=== PATIENT | female | born 1945 ===

== ENCOUNTER 2021-05-29 21:19 | Inpatient (IN) | payer BC, OTHER ==
[~2021-05-29] VITALS: Ht 152.4 cm; Wt 30.7 kg
[2021-05-29] MEDS ORDERED: ASPirin 81 mg TAB PO ONE (22:00)
[2021-05-29] MEDS ORDERED: LABETALOL HCL 5 MG/ML 4ML SYRINGE IV ONE (22:00)
[2021-05-29 22:22] LABS: Basophils # (auto) 0.1 10 ^3/uL (0-0.2); Basophils % (auto) 1.5 % (0.0-2.0); Eosinophils # (auto) 0.2 10 ^3/uL (0-0.8); Eosinophils % (auto) 2.8 % (0.0-7.0); Hematocrit 29.7 % (36.0-46.0); Hemoglobin 9.7 g/dL (12.2-16.2); Lymphocytes # (auto) 0.7 10 ^3/uL (0.4-5.4); Lymphocytes % (auto) 10.9 % (10.0-50.0); Mean Corpuscular Hemoglobin 30.5 pg (28.0-32.0); Mean Corpuscular Hgb Conc. 32.6 g/dL (32.0-36.0); Mean Corpuscular Volume 93.3 fL (80.0-100.0); Monocytes # (auto) 0.5 10 ^3/uL (0-1.3); Monocytes % (auto) 8.4 % (0.0-12.0); Neutrophils # (auto) 4.7 10 ^3/uL (1.6-8.6); Neutrophils % (auto) 76.4 % (37.0-80.0); Red Blood Cells 3.18 10^6/uL (4.0-5.20); Red Cell Distribution Width 15.7 % (11.8-14.3); White Blood Cell 6.1 10^3/uL (4.4-10.8)
[2021-05-29 22:33] LABS: Urine Bacteria FEW /hpf (None Seen); Urine Blood Negative /uL (Negative); Urine Hyaline Cast FEW /lpf (0 - 2); Urine Mucus FEW (None Seen); Urine Specific Gravity 1.021 (1.001-1.035); Urine WBC 75 /hpf (0 - 5); Urine WBC Clumps PRESENT /hpf (None Seen)
[2021-05-29 22:40] LABS: Albumin 3.4 g/dL (3.4-5.0); Calcium 8.4 mg/dL (8.5-10.1)
[2021-05-29 22:49] LABS: Bilirubin, Total 0.3 mg/dL (0.2-1.0); Total Protein 6.7 g/dL (6.4-8.2)
[2021-05-29] MEDS ORDERED: ONDANSETRON HCL 4 MG/2 ML VIAL IV ONE (23:30)
[2021-05-29] MEDS ORDERED: MORPHINE SULFATE INJECTION 2 MG/ML SYRG IV ONE (23:30)
[2021-05-30] VITALS (23 sets, daily range): BP systolic 125–154; BP diastolic 49–111
[2021-05-30 00:07] LABS: INR 1.03 (0.9-1.15); Partial Thromboplastin Time 27.6 sec (23.6-33.0)
[2021-05-30] MEDS ORDERED: LABETALOL HCL 5 MG/ML 4ML SYRINGE IV ONE (01:15)
[2021-05-30] MEDS ORDERED: cefTRIAXone 1GM/50ML D5W 50 ML IV ONE (02:00)
[2021-05-30] MEDS ORDERED: LABETALOL HCL 200 MG TAB PO ONE (02:15)
[2021-05-30] MEDS ORDERED: ATORVASTATIN 20 MG TAB PO ONE (04:00)
[2021-05-30] MEDS ORDERED: DEXTROSE (50%) 50ML SYRG IV PRN (04:00)
[2021-05-30] MEDS ORDERED: MORPHINE SULFATE INJECTION 2 MG/ML SYRG IV PRN (04:00)
[2021-05-30] MEDS ORDERED: ALBUTEROL SULF 2.5 MG/0.5ML(0.5%) NEB SOLN NEB PRN (04:00)
[2021-05-30] MEDS ORDERED: CLOPIDOGREL 300 MG TAB PO ONE (04:00)
[2021-05-30] MEDS ORDERED: methylPREDNISolone SOD SUCC 125 MG/2 ML VL IV ONE (04:00)
[2021-05-30] MEDS ORDERED: IPRATROPIUM BROM 0.5 MG/2.5ML INH SOL NEB PRN (04:00)
[2021-05-30] MEDS ORDERED: MORPHINE SULFATE 4 MG/ML SYR/VIAL IV PRN (04:00)
[2021-05-30] MEDS: GABAPENTIN 300 MG CAP PO SCH (05:05)
[2021-05-30] MEDS: ALBUTEROL SULF 2.5 MG/0.5ML(0.5%) NEB SOLN NEB SCH ×5 (06:10→23:47)
[2021-05-30] MEDS: IPRATROPIUM BROM 0.5 MG/2.5ML INH SOL NEB SCH ×5 (06:10→23:47)
[2021-05-30] MEDS: NITROGLYCERIN 50MG/250ML 250 ML IV SCH (06:19)
[2021-05-30] MEDS: InsuLIN REG 1unit/0.01ml Soln (100units/ml) SC SCH ×4 (07:00→21:39)
[2021-05-30] MEDS: ACCU-CHEK COMFORT CURVE STRIP VI SCH ×4 (07:27→21:40)
[2021-05-30 08:07] LABS: Basophils # (auto) 0.1 10 ^3/uL (0-0.2); Basophils % (auto) 1.1 % (0.0-2.0); Eosinophils # (auto) 0.1 10 ^3/uL (0-0.8); Eosinophils % (auto) 1.2 % (0.0-7.0); Hemoglobin 9.5 g/dL (12.2-16.2); Lymphocytes # (auto) 0.4 10 ^3/uL (0.4-5.4); Lymphocytes % (auto) 7.6 % (10.0-50.0); Mean Corpuscular Hemoglobin 31.8 pg (28.0-32.0); Mean Corpuscular Hgb Conc. 33.9 g/dL (32.0-36.0); Mean Corpuscular Volume 93.7 fL (80.0-100.0); Monocytes # (auto) 0.1 10 ^3/uL (0-1.3); Monocytes % (auto) 3.1 % (0.0-12.0); Neutrophils # (auto) 4.1 10 ^3/uL (1.6-8.6); Red Blood Cells 2.98 10^6/uL (4.0-5.20); White Blood Cell 4.8 10^3/uL (4.4-10.8)
[2021-05-30 08:09] LABS: Amphetamine Screen, Urine NEGATIVE (NEGATIVE); Barbiturate Scree,Urine NEGATIVE (NEGATIVE); Benzodiazephine Screen, Urine NEGATIVE (NEGATIVE); Cannabinoid Screen, Urine NEGATIVE (NEGATIVE); Cocaine Screen, Urine NEGATIVE (NEGATIVE); Opiate Scree,Urine NEGATIVE (NEGATIVE); Phencyclidine Screen, Urine NEGATIVE (NEGATIVE)
[2021-05-30 08:18] LABS: Albumin 3.1 g/dL (3.4-5.0); Magnesium 2.5 mg/dL (1.6-2.6)
[2021-05-30 08:25] LABS: BUN/Creatinine Ratio 18.3; Bilirubin, Total 0.3 mg/dL (0.2-1.0); Calcium 8.5 mg/dL (8.5-10.1); Total Protein 6.4 g/dL (6.4-8.2)
[2021-05-30 08:27] LABS: INR 1.04 (0.9-1.15); Partial Thromboplastin Time 41.6 sec (23.6-33.0)
[2021-05-30 08:34] LABS: Potassium 5.7 mmol/L (3.5-5.1)
[2021-05-30] MEDS: FUROSEMIDE 40 MG/4 ML VIAL IV SCH ×2 (10:07→17:35)
[2021-05-30] MEDS: CARVEDILOL 3.125 MG TAB PO SCH ×2 (10:08→21:03)
[2021-05-30] MEDS: ASPirin 81 mg TAB PO SCH (10:08)
[2021-05-30] MEDS: PANTOPRAZOLE 40 MG TAB PO SCH (10:09)
[2021-05-30] MEDS: SOD CHL 0.45% 1,000 ML IV SCH ×5 (13:55→17:52)
[2021-05-30] MEDS: methylPREDNISolone SOD SUCC 40 MG/ML VL IV SCH ×3 (13:55→23:17)
[2021-05-30] MEDS: hydrALAZINE HCL 25 MG TAB PO SCH ×2 (13:56→21:03)
[2021-05-30 16:42] LABS: INR 0.99 (0.9-1.15); Partial Thromboplastin Time 30.6 sec (23.6-33.0)
[2021-05-30] MEDS: SODIUM ZIRCONIUM CYCL 10 GM PAK PO SCH ×2 (17:31→21:04)
[2021-05-30] MEDS ORDERED: HEPARIN DRIP/D5W 100UNITS/ML 250 ML IV SCH ×2 (18:15)
[2021-05-30] MEDS ORDERED: HEPARIN SODIUM (PORCINE) 5000 UNITS/ML 1ML VIAL IV ONE ×2 (18:15)
[2021-05-30] MEDS: cloNIDine HCL 0.1 MG TAB PO SCH (21:04)
[2021-05-30] MEDS: ATORVASTATIN 20 MG TAB PO SCH (21:04)
[2021-05-31] VITALS (22 sets, daily range): BP systolic 115–170; BP diastolic 49–81
[2021-05-31 01:53] LABS: INR 1.03 (0.9-1.15)
[2021-05-31] MEDS: SOD CHL 0.45% 1,000 ML IV SCH (01:58)
[2021-05-31 02:06] LABS: Partial Thromboplastin Time 102.9 sec (23.6-33.0)
[2021-05-31] MEDS: NITROGLYCERIN 50MG/250ML 250 ML IV SCH (04:00)
[2021-05-31] MEDS: methylPREDNISolone SOD SUCC 40 MG/ML VL IV SCH (05:38)
[2021-05-31 06:04] LABS: Basophils # (auto) 0 10 ^3/uL (0-0.2); Basophils % (auto) 0.4 % (0.0-2.0); Eosinophils # (auto) 0 10 ^3/uL (0-0.8); Hematocrit 26.2 % (36.0-46.0); Hemoglobin 8.7 g/dL (12.2-16.2); Lymphocytes # (auto) 0.3 10 ^3/uL (0.4-5.4); Lymphocytes % (auto) 3.3 % (10.0-50.0); Mean Corpuscular Hemoglobin 31.1 pg (28.0-32.0); Mean Corpuscular Hgb Conc. 33.3 g/dL (32.0-36.0); Mean Corpuscular Volume 93.4 fL (80.0-100.0); Monocytes # (auto) 0.2 10 ^3/uL (0-1.3); Monocytes % (auto) 2.7 % (0.0-12.0); Neutrophils # (auto) 7.8 10 ^3/uL (1.6-8.6); Neutrophils % (auto) 93.6 % (37.0-80.0); Red Cell Distribution Width 15.2 % (11.8-14.3); White Blood Cell 8.4 10^3/uL (4.4-10.8)
[2021-05-31] MEDS: IPRATROPIUM BROM 0.5 MG/2.5ML INH SOL NEB SCH ×3 (06:28→18:32)
[2021-05-31] MEDS: ALBUTEROL SULF 2.5 MG/0.5ML(0.5%) NEB SOLN NEB SCH ×3 (06:28→18:32)
[2021-05-31] MEDS: ACCU-CHEK COMFORT CURVE STRIP VI SCH ×4 (06:35→21:29)
[2021-05-31] MEDS: FUROSEMIDE 40 MG/4 ML VIAL IV SCH ×2 (06:35→17:44)
[2021-05-31] MEDS: InsuLIN REG 1unit/0.01ml Soln (100units/ml) SC SCH ×4 (06:39→21:29)
[2021-05-31 06:54] LABS: Albumin 2.8 g/dL (3.4-5.0); BUN/Creatinine Ratio 17.2; Potassium 5.3 mmol/L (3.5-5.1)
[2021-05-31 06:57] LABS: Bilirubin, Total 0.2 mg/dL (0.2-1.0); Total Protein 6.2 g/dL (6.4-8.2)
[2021-05-31 06:59] LABS: INR 1.01 (0.9-1.15); Partial Thromboplastin Time 46.1 sec (23.6-33.0)
[2021-05-31 08:15] LABS: Uric Acid 9.3 mg/dL (2.6-6.0)
[2021-05-31] MEDS: SODIUM ZIRCONIUM CYCL 10 GM PAK PO SCH (08:57)
[2021-05-31] MEDS ORDERED: cefTRIAXone 1GM/50ML D5W 50 ML IV SCH (09:00)
[2021-05-31 09:21] LABS: Urine Bacteria FEW /hpf (None Seen); Urine Blood 1+ /uL (Negative); Urine Hyaline Cast FEW /lpf (0 - 2); Urine Specific Gravity 1.008 (1.001-1.035); Urine WBC 11 /hpf (0 - 5)
[2021-05-31 09:33] LABS: Protein, Urine 69.4 mg/dL (0.0-11.9)
[2021-05-31] MEDS: hydrALAZINE HCL 25 MG TAB PO SCH ×2 (10:43→21:28)
[2021-05-31] MEDS: METOPROLOL TARTRATE 25 MG TAB PO SCH ×2 (10:43→21:29)
[2021-05-31] MEDS: CLOPIDOGREL BISULFATE 75 MG TAB PO SCH (10:44)
[2021-05-31] MEDS: GABAPENTIN 300 MG CAP PO SCH (10:45)
[2021-05-31] MEDS: cloNIDine HCL 0.1 MG TAB PO SCH ×2 (10:45→21:29)
[2021-05-31] MEDS: PANTOPRAZOLE 40 MG TAB PO SCH (10:45)
[2021-05-31] MEDS: ASPirin 81 mg TAB PO SCH (10:45)
[2021-05-31] MEDS ORDERED: SODIUM CHLORIDE 0.9% 1,000 ML IV SCH (12:45)
[2021-05-31 12:58] LABS: INR 0.99 (0.9-1.15); Partial Thromboplastin Time 43.3 sec (23.6-33.0)
[2021-05-31] MEDS: HEPARIN DRIP/D5W 100UNITS/ML 250 ML IV SCH ×2 (13:49→19:57)
[2021-05-31] MEDS: ALBUMIN 25% 100 ML IV SCH ×2 (13:55→22:02)
[2021-05-31] MEDS: CALCIUM GLUC 1,000mg/50ml-NS 50 ML IV SCH ×3 (16:49→21:28)
[2021-05-31] MEDS ORDERED: ONDANSETRON HCL 4 MG/2 ML VIAL IV PRN (20:15)
[2021-05-31 20:17] LABS: INR 1.04 (0.9-1.15)
[2021-05-31 21:06] LABS: Partial Thromboplastin Time 80.6 sec (23.6-33.0)
[2021-05-31] MEDS: ATORVASTATIN 20 MG TAB PO SCH (21:28)
[2021-06-01] VITALS (11 sets, daily range): BP systolic 101–130; BP diastolic 42–70
[2021-06-01] MEDS: IPRATROPIUM BROM 0.5 MG/2.5ML INH SOL NEB SCH ×4 (00:06→18:20)
[2021-06-01] MEDS: ALBUTEROL SULF 2.5 MG/0.5ML(0.5%) NEB SOLN NEB SCH ×4 (00:06→18:20)
[2021-06-01] MEDS: NITROGLYCERIN 50MG/250ML 250 ML IV SCH (02:37)
[2021-06-01 03:04] LABS: Basophils # (auto) 0 10 ^3/uL (0-0.2); Basophils % (auto) 0.3 % (0.0-2.0); Eosinophils # (auto) 0 10 ^3/uL (0-0.8); Hematocrit 24.5 % (36.0-46.0); Hemoglobin 8.1 g/dL (12.2-16.2); Lymphocytes # (auto) 0.5 10 ^3/uL (0.4-5.4); Lymphocytes % (auto) 8.1 % (10.0-50.0); Mean Corpuscular Hemoglobin 31.1 pg (28.0-32.0); Mean Corpuscular Hgb Conc. 33.1 g/dL (32.0-36.0); Mean Corpuscular Volume 94.2 fL (80.0-100.0); Monocytes # (auto) 0.5 10 ^3/uL (0-1.3); Neutrophils % (auto) 82.6 % (37.0-80.0); Nucleated Red Blood Cells % 0.2 %; Red Blood Cells 2.61 10^6/uL (4.0-5.20); Red Cell Distribution Width 15.5 % (11.8-14.3); White Blood Cell 6.1 10^3/uL (4.4-10.8)
[2021-06-01 03:25] LABS: Albumin 3.6 g/dL (3.4-5.0); BUN/Creatinine Ratio 18.8; Calcium 8.3 mg/dL (8.5-10.1); Potassium 4.7 mmol/L (3.5-5.1)
[2021-06-01 03:27] LABS: Bilirubin, Total 0.2 mg/dL (0.2-1.0); Total Protein 5.9 g/dL (6.4-8.2)
[2021-06-01 03:36] LABS: INR 1.04 (0.9-1.15)
[2021-06-01 03:45] LABS: Partial Thromboplastin Time 89.9 sec (23.6-33.0)
[2021-06-01] MEDS: ALBUMIN 25% 100 ML IV SCH (04:45)
[2021-06-01] MEDS: FUROSEMIDE 40 MG/4 ML VIAL IV SCH ×2 (06:00→12:07)
[2021-06-01] MEDS: ACCU-CHEK COMFORT CURVE STRIP VI SCH ×4 (06:09→22:00)
[2021-06-01] MEDS: InsuLIN REG 1unit/0.01ml Soln (100units/ml) SC SCH ×4 (06:09→22:00)
[2021-06-01] MEDS ORDERED: CALCIUM CHL 100MG/ML 1,000 MG in D5W 5% 100 ML IV ONE (08:30)
[2021-06-01] MEDS ORDERED: SODIUM CHLORIDE 0.9% 1,000 ML IV SCH ×2 (08:30→14:45)
[2021-06-01] MEDS ORDERED: levoFLOXacin 500MG 100 ML IV ONE (09:00)
[2021-06-01] MEDS: PANTOPRAZOLE 40 MG TAB PO SCH (09:09)
[2021-06-01] MEDS: GABAPENTIN 300 MG CAP PO SCH (09:09)
[2021-06-01] MEDS: ASPirin 81 mg TAB PO SCH (09:10)
[2021-06-01] MEDS: CLOPIDOGREL BISULFATE 75 MG TAB PO SCH (09:10)
[2021-06-01] MEDS: METOPROLOL TARTRATE 25 MG TAB PO SCH ×2 (09:10→22:00)
[2021-06-01] MEDS: cloNIDine HCL 0.1 MG TAB PO SCH (09:10)
[2021-06-01] MEDS: hydrALAZINE HCL 25 MG TAB PO SCH ×2 (09:11→22:00)
[2021-06-01 10:47] LABS: INR 1.06 (0.9-1.15); Partial Thromboplastin Time 58.8 sec (23.6-33.0)
[2021-06-01] MEDS: CALCIUM ACETATE 667 MG CAP PO SCH ×2 (12:00→17:15)
[2021-06-01] MEDS ORDERED: SODIUM CHLORIDE 0.9% 1,000 ML IV ONE (12:15)
[2021-06-01] MEDS ORDERED: SODIUM CHLORIDE 0.9% 500 ML IV ONE (14:45)
[2021-06-01] MEDS ORDERED: LACTULOSE 20Gm/30ML SOLN PO ONE (15:30)
[2021-06-01 16:20] LABS: INR 1.08 (0.9-1.15); Partial Thromboplastin Time 42.1 sec (23.6-33.0)
[2021-06-01] MEDS ORDERED: FUROSEMIDE 100 MG/10ML VIAL IV ONE (18:15)
[2021-06-01] MEDS: SODIUM CHLORIDE 0.9% 1,000 ML IV SCH (18:33)
[2021-06-01] MEDS: ATORVASTATIN 20 MG TAB PO SCH (22:00)
[2021-06-02] MEDS: IPRATROPIUM BROM 0.5 MG/2.5ML INH SOL NEB SCH ×5 (00:19→23:54)
[2021-06-02] MEDS: ALBUTEROL SULF 2.5 MG/0.5ML(0.5%) NEB SOLN NEB SCH ×5 (00:19→23:54)
[2021-06-02 04:39] LABS: Urine Bacteria FEW /hpf (None Seen); Urine Blood 2+ /uL (Negative); Urine Hyaline Cast MOD /lpf (0 - 2); Urine WBC 8 /hpf (0 - 5)
[2021-06-02 05:00] VITALS: BP 122/51
[2021-06-02 06:00] LABS: Basophils # (auto) 0 10 ^3/uL (0-0.2); Basophils % (auto) 0.5 % (0.0-2.0); Eosinophils # (auto) 0 10 ^3/uL (0-0.8); Eosinophils % (auto) 0.2 % (0.0-7.0); Hematocrit 26.8 % (36.0-46.0); Hemoglobin 8.8 g/dL (12.2-16.2); Lymphocytes # (auto) 0.5 10 ^3/uL (0.4-5.4); Lymphocytes % (auto) 9.7 % (10.0-50.0); Mean Corpuscular Hemoglobin 31.1 pg (28.0-32.0); Mean Corpuscular Hgb Conc. 32.7 g/dL (32.0-36.0); Monocytes # (auto) 0.6 10 ^3/uL (0-1.3); Monocytes % (auto) 10.2 % (0.0-12.0); Neutrophils # (auto) 4.4 10 ^3/uL (1.6-8.6); Neutrophils % (auto) 79.4 % (37.0-80.0); Nucleated Red Blood Cells % 0.2 %; Red Blood Cells 2.82 10^6/uL (4.0-5.20); Red Cell Distribution Width 15.9 % (11.8-14.3); White Blood Cell 5.5 10^3/uL (4.4-10.8)
[2021-06-02 06:24] LABS: Albumin 3.4 g/dL (3.4-5.0); Calcium 8.1 mg/dL (8.5-10.1); Potassium 5.1 mmol/L (3.5-5.1)
[2021-06-02 06:44] LABS: BUN/Creatinine Ratio 19.5; Bilirubin, Total 0.3 mg/dL (0.2-1.0); Total Protein 5.7 g/dL (6.4-8.2)
[2021-06-02] MEDS: ACCU-CHEK COMFORT CURVE STRIP VI SCH ×4 (06:51→22:00)
[2021-06-02] MEDS: InsuLIN REG 1unit/0.01ml Soln (100units/ml) SC SCH ×4 (06:51→22:00)
[2021-06-02 08:00] VITALS: BP 129/41
[2021-06-02] MEDS: CALCIUM ACETATE 667 MG CAP PO SCH ×3 (08:00→18:00)
[2021-06-02] MEDS: SODIUM CHLORIDE 0.9% 1,000 ML IV SCH (08:33)
[2021-06-02] MEDS ORDERED: ENOXAPARIN SOD 30 MG/0.3 ML SYRINGE SC SCH (10:00)
[2021-06-02] MEDS: ASPirin 81 mg TAB PO SCH (10:05)
[2021-06-02] MEDS ORDERED: ASPI325T31 PO (10:05)
[2021-06-02] MEDS: hydrALAZINE HCL 25 MG TAB PO SCH ×2 (10:05→22:00)
[2021-06-02] MEDS ORDERED: CARV12.544 PO (10:05)
[2021-06-02] MEDS ORDERED: FAMO-12 PO (10:05)
[2021-06-02] MEDS: FUROSEMIDE 40 MG/4 ML VIAL IV SCH (10:05)
[2021-06-02] MEDS ORDERED: NIFE1TAB31 PO (10:05)
[2021-06-02] MEDS ORDERED: BUME1TAB3 PO (10:05)
[2021-06-02] MEDS: GABAPENTIN 300 MG CAP PO SCH (10:05)
[2021-06-02] MEDS ORDERED: SERT50TA19 PO (10:05)
[2021-06-02] MEDS ORDERED: ATOR40TA52 PO (10:05)
[2021-06-02] MEDS: PANTOPRAZOLE 40 MG TAB PO SCH (10:06)
[2021-06-02] MEDS: CLOPIDOGREL BISULFATE 75 MG TAB PO SCH (10:06)
[2021-06-02] MEDS: METOPROLOL TARTRATE 25 MG TAB PO SCH ×2 (10:06→22:00)
[2021-06-02] MEDS: ACETAMINOPHEN 325 MG TAB PO PRN (10:40)
[2021-06-02 12:00] VITALS: BP 114/46
[2021-06-02] MEDS: FUROSEMIDE 100 MG/10ML VIAL IV SCH ×2 (14:05→22:00)
[2021-06-02 16:00] VITALS: BP 112/48
[2021-06-02 19:03] LABS: BUN/Creatinine Ratio 17.4; Potassium 4.7 mmol/L (3.5-5.1)
[2021-06-02] MEDS: ATORVASTATIN 20 MG TAB PO SCH (22:00)
[2021-06-02] MEDS: HEPARIN SODIUM (PORCINE) 5000 UNITS/ML 1ML VIAL SC SCH (22:00)
[2021-06-02 22:01] VITALS: BP 117/41
[2021-06-03 05:39] LABS: Basophils # (auto) 0 10 ^3/uL (0-0.2); Basophils % (auto) 0.2 % (0.0-2.0); Eosinophils # (auto) 0 10 ^3/uL (0-0.8); Eosinophils % (auto) 0.3 % (0.0-7.0); Hematocrit 26.5 % (36.0-46.0); Hemoglobin 8.8 g/dL (12.2-16.2); Lymphocytes # (auto) 0.5 10 ^3/uL (0.4-5.4); Lymphocytes % (auto) 7.6 % (10.0-50.0); Mean Corpuscular Hemoglobin 31.5 pg (28.0-32.0); Mean Corpuscular Hgb Conc. 33.2 g/dL (32.0-36.0); Mean Corpuscular Volume 94.9 fL (80.0-100.0); Monocytes # (auto) 0.6 10 ^3/uL (0-1.3); Monocytes % (auto) 9.4 % (0.0-12.0); Neutrophils # (auto) 4.9 10 ^3/uL (1.6-8.6); Neutrophils % (auto) 82.5 % (37.0-80.0); Nucleated Red Blood Cells % 0.1 %; Red Blood Cells 2.79 10^6/uL (4.0-5.20); Red Cell Distribution Width 16.3 % (11.8-14.3)
[2021-06-03 05:48] VITALS: BP 128/53
[2021-06-03 05:50] LABS: Potassium 4.8 mmol/L (3.5-5.1)
[2021-06-03 05:53] LABS: Albumin 3.4 g/dL (3.4-5.0); BUN/Creatinine Ratio 17.5; Bilirubin, Total 0.3 mg/dL (0.2-1.0); Total Protein 5.8 g/dL (6.4-8.2)
[2021-06-03] MEDS: FUROSEMIDE 100 MG/10ML VIAL IV SCH ×3 (06:00→22:00)
[2021-06-03] MEDS: ACCU-CHEK COMFORT CURVE STRIP VI SCH ×4 (06:39→22:00)
[2021-06-03] MEDS: IPRATROPIUM BROM 0.5 MG/2.5ML INH SOL NEB SCH ×3 (06:41→19:21)
[2021-06-03] MEDS: ALBUTEROL SULF 2.5 MG/0.5ML(0.5%) NEB SOLN NEB SCH ×3 (06:41→19:21)
[2021-06-03] MEDS: InsuLIN REG 1unit/0.01ml Soln (100units/ml) SC SCH ×4 (06:42→22:00)
[2021-06-03] MEDS: CALCIUM ACETATE 667 MG CAP PO SCH ×3 (08:00→18:00)
[2021-06-03] MEDS: ASPirin 81 mg TAB PO SCH (08:44)
[2021-06-03] MEDS: METOPROLOL TARTRATE 25 MG TAB PO SCH ×2 (08:44→22:00)
[2021-06-03] MEDS: PANTOPRAZOLE 40 MG TAB PO SCH (08:44)
[2021-06-03] MEDS: CLOPIDOGREL BISULFATE 75 MG TAB PO SCH (08:44)
[2021-06-03] MEDS: GABAPENTIN 300 MG CAP PO SCH (08:44)
[2021-06-03] MEDS: HEPARIN SODIUM (PORCINE) 5000 UNITS/ML 1ML VIAL SC SCH ×2 (08:44→22:00)
[2021-06-03] MEDS: hydrALAZINE HCL 25 MG TAB PO SCH ×3 (08:44→18:00)
[2021-06-03 09:09] VITALS: BP 160/69
[2021-06-03] MEDS ORDERED: levoFLOXacin 250MG 50 ML IV SCH (10:00)
[2021-06-03] MEDS: ALBUMIN 25% 50 ML IV SCH ×2 (10:45→18:57)
[2021-06-03 12:40] VITALS: BP 141/68
[2021-06-03 14:39] LABS: Potassium 4.3 mmol/L (3.5-5.1)
[2021-06-03 14:43] LABS: BUN/Creatinine Ratio 16.6
[2021-06-03 14:44] LABS: Calcium 8.3 mg/dL (8.5-10.1)
[2021-06-03 16:32] VITALS: BP 167/70
[2021-06-03] MEDS: ATORVASTATIN 20 MG TAB PO SCH (22:00)
[2021-06-03 23:05] VITALS: BP 125/63
[2021-06-04] MEDS: IPRATROPIUM BROM 0.5 MG/2.5ML INH SOL NEB SCH ×4 (00:23→19:24)
[2021-06-04] MEDS: ALBUTEROL SULF 2.5 MG/0.5ML(0.5%) NEB SOLN NEB SCH ×4 (00:23→19:24)
[2021-06-04] MEDS: ALBUMIN 25% 50 ML IV SCH (02:45)
[2021-06-04 05:12] VITALS: BP 127/66
[2021-06-04] MEDS: FUROSEMIDE 100 MG/10ML VIAL IV SCH ×3 (06:00→22:08)
[2021-06-04] MEDS: hydrALAZINE HCL 25 MG TAB PO SCH ×4 (06:00→17:22)
[2021-06-04] MEDS: InsuLIN REG 1unit/0.01ml Soln (100units/ml) SC SCH ×4 (07:00→22:00)
[2021-06-04] MEDS: ACCU-CHEK COMFORT CURVE STRIP VI SCH ×4 (07:00→22:10)
[2021-06-04 07:04] LABS: BUN/Creatinine Ratio 17.2; Calcium 8.7 mg/dL (8.5-10.1); Potassium 4.3 mmol/L (3.5-5.1)
[2021-06-04] MEDS: CALCIUM ACETATE 667 MG CAP PO SCH ×3 (08:00→17:22)
[2021-06-04] MEDS: ASPirin 81 mg TAB PO SCH (08:00)
[2021-06-04 08:30] VITALS: BP 135/58
[2021-06-04] MEDS: METOPROLOL TARTRATE 25 MG TAB PO SCH ×2 (08:51→22:09)
[2021-06-04] MEDS: CLOPIDOGREL BISULFATE 75 MG TAB PO SCH (08:52)
[2021-06-04] MEDS: HEPARIN SODIUM (PORCINE) 5000 UNITS/ML 1ML VIAL SC SCH ×2 (08:52→22:10)
[2021-06-04] MEDS: GABAPENTIN 300 MG CAP PO SCH (08:52)
[2021-06-04] MEDS: PANTOPRAZOLE 40 MG TAB PO SCH (09:00)
[2021-06-04 13:00] VITALS: BP 134/68
[2021-06-04] MEDS ORDERED: HEPARIN 1,000 UNITS/ml 1ML VIAL ONE (14:13)
[2021-06-04] MEDS ORDERED: HEPARIN 1,000 UNITS/ml 1ML VIAL IV ONE (14:15)
[2021-06-04] MEDS ORDERED: LIDOCAINE 1% (LOCAL ANESTH.) PF 5ml SDV ONE (14:31)
[2021-06-04] MEDS ORDERED: ALBUMIN 25% 100 ML IV PRN (16:00)
[2021-06-04] MEDS ORDERED: SODIUM CHL 0.9% 1000 ML BAG XX ONE (16:00)
[2021-06-04 17:00] VITALS: BP 132/50
[2021-06-04 17:42] LABS: Basophils # (auto) 0 10 ^3/uL (0-0.2); Eosinophils # (auto) 0 10 ^3/uL (0-0.8); Lymphocytes # (auto) 0.3 10 ^3/uL (0.4-5.4); Neutrophils # (auto) 3.9 10 ^3/uL (1.6-8.6); Nucleated Red Blood Cells % 0.1 %; White Blood Cell 4.6 10^3/uL (4.4-10.8)
[2021-06-04 17:44] LABS: Basophils % (auto) 0.2 % (0.0-2.0); Eosinophils % (auto) 0.9 % (0.0-7.0); Hematocrit 23.7 % (36.0-46.0); Lymphocytes % (auto) 6.5 % (10.0-50.0); Mean Corpuscular Hemoglobin 31.1 pg (28.0-32.0); Mean Corpuscular Hgb Conc. 33.7 g/dL (32.0-36.0); Mean Corpuscular Volume 92.3 fL (80.0-100.0); Monocytes # (auto) 0.4 10 ^3/uL (0-1.3); Monocytes % (auto) 7.7 % (0.0-12.0); Neutrophils % (auto) 84.7 % (37.0-80.0); Red Blood Cells 2.57 10^6/uL (4.0-5.20); Red Cell Distribution Width 15.8 % (11.8-14.3)
[2021-06-04] MEDS ORDERED: EPOETIN ALFA-EPBX 10,000 UNIT/1ML VIAL SC ONE (21:00)
[2021-06-04 22:00] VITALS: BP 138/54
[2021-06-04] MEDS: ATORVASTATIN 20 MG TAB PO SCH (22:08)
[2021-06-05] VITALS (7 sets, daily range): BP systolic 127–144; BP diastolic 42–68
[2021-06-05] MEDS: ALBUTEROL SULF 2.5 MG/0.5ML(0.5%) NEB SOLN NEB SCH ×4 (00:36→19:39)
[2021-06-05] MEDS: IPRATROPIUM BROM 0.5 MG/2.5ML INH SOL NEB SCH ×4 (00:36→19:39)
[2021-06-05] MEDS: hydrALAZINE HCL 25 MG TAB PO SCH ×4 (00:49→17:27)
[2021-06-05] MEDS: FUROSEMIDE 100 MG/10ML VIAL IV SCH ×3 (05:45→22:01)
[2021-06-05] MEDS: InsuLIN REG 1unit/0.01ml Soln (100units/ml) SC SCH ×4 (05:46→21:56)
[2021-06-05] MEDS: ACCU-CHEK COMFORT CURVE STRIP VI SCH ×4 (05:46→21:57)
[2021-06-05] MEDS: CALCIUM ACETATE 667 MG CAP PO SCH ×3 (08:00→17:28)
[2021-06-05 08:30] LABS: Calcium 8.3 mg/dL (8.5-10.1); Potassium 3.6 mmol/L (3.5-5.1)
[2021-06-05 08:31] LABS: BUN/Creatinine Ratio 15.3
[2021-06-05 08:44] LABS: Basophils # (auto) 0 10 ^3/uL (0-0.2); Basophils % (auto) 0.3 % (0.0-2.0); Lymphocytes # (auto) 0.6 10 ^3/uL (0.4-5.4); Mean Corpuscular Volume 92.8 fL (80.0-100.0); Nucleated Red Blood Cells % 0.1 %
[2021-06-05 08:46] LABS: Eosinophils # (auto) 0.1 10 ^3/uL (0-0.8); Eosinophils % (auto) 1.2 % (0.0-7.0); Hematocrit 23.4 % (36.0-46.0); Lymphocytes % (auto) 10.7 % (10.0-50.0); Mean Corpuscular Hemoglobin 31.7 pg (28.0-32.0); Mean Corpuscular Hgb Conc. 34.2 g/dL (32.0-36.0); Monocytes # (auto) 0.7 10 ^3/uL (0-1.3); Monocytes % (auto) 13.2 % (0.0-12.0); Neutrophils % (auto) 74.6 % (37.0-80.0); Red Blood Cells 2.53 10^6/uL (4.0-5.20); Red Cell Distribution Width 15.6 % (11.8-14.3); White Blood Cell 5.4 10^3/uL (4.4-10.8)
[2021-06-05] MEDS: ASPirin 81 mg TAB PO SCH (09:32)
[2021-06-05] MEDS: METOPROLOL TARTRATE 25 MG TAB PO SCH ×2 (09:32→22:00)
[2021-06-05] MEDS: PANTOPRAZOLE 40 MG TAB PO SCH (09:33)
[2021-06-05] MEDS: CLOPIDOGREL BISULFATE 75 MG TAB PO SCH (09:33)
[2021-06-05] MEDS: GABAPENTIN 300 MG CAP PO SCH (09:33)
[2021-06-05] MEDS: HEPARIN SODIUM (PORCINE) 5000 UNITS/ML 1ML VIAL SC SCH ×2 (09:43→21:55)
[2021-06-05] MEDS: SODIUM FERR GLUC 62.5MG/5ML 125 MG in SODIUM CHL 0.9% 100 ML IV SCH (12:00)
[2021-06-05 13:31] LABS: Hepatitis A Ab IgM Negative
[2021-06-05 14:35] LABS: Hepatitis B Core IgM Negative
[2021-06-05 14:45] LABS: Hepatitis C Antibody Negative (Negative)
[2021-06-05] MEDS: ATORVASTATIN 20 MG TAB PO SCH (21:54)
[2021-06-06] MEDS: IPRATROPIUM BROM 0.5 MG/2.5ML INH SOL NEB SCH ×4 (00:42→18:22)
[2021-06-06] MEDS: ALBUTEROL SULF 2.5 MG/0.5ML(0.5%) NEB SOLN NEB SCH ×4 (00:42→18:22)
[2021-06-06] MEDS: hydrALAZINE HCL 25 MG TAB PO SCH ×5 (00:57→23:50)
[2021-06-06 05:00] VITALS: BP 152/71
[2021-06-06] MEDS: FUROSEMIDE 100 MG/10ML VIAL IV SCH ×3 (05:48→22:45)
[2021-06-06] MEDS: ACCU-CHEK COMFORT CURVE STRIP VI SCH ×4 (06:25→22:56)
[2021-06-06] MEDS: InsuLIN REG 1unit/0.01ml Soln (100units/ml) SC SCH ×4 (06:29→22:50)
[2021-06-06 06:44] LABS: Hemoglobin 8.2 g/dL (12.2-16.2)
[2021-06-06 06:49] LABS: Hematocrit 23.7 % (36.0-46.0)
[2021-06-06 06:56] LABS: Calcium 8.5 mg/dL (8.5-10.1); Potassium 3.5 mmol/L (3.5-5.1)
[2021-06-06 06:57] LABS: BUN/Creatinine Ratio 14.8
[2021-06-06] MEDS ORDERED: SODIUM CHL 0.9% 1000 ML BAG XX ONE (07:00)
[2021-06-06 08:00] VITALS: BP 142/46
[2021-06-06 08:34] VITALS: BP 142/46
[2021-06-06] MEDS: CLOPIDOGREL BISULFATE 75 MG TAB PO SCH (09:35)
[2021-06-06] MEDS: GABAPENTIN 300 MG CAP PO SCH (09:35)
[2021-06-06] MEDS: PANTOPRAZOLE 40 MG TAB PO SCH (09:35)
[2021-06-06] MEDS: CALCIUM ACETATE 667 MG CAP PO SCH ×3 (09:35→18:52)
[2021-06-06] MEDS: ASPirin 81 mg TAB PO SCH (09:36)
[2021-06-06] MEDS: METOPROLOL TARTRATE 25 MG TAB PO SCH ×2 (09:37→22:47)
[2021-06-06] MEDS: HEPARIN SODIUM (PORCINE) 5000 UNITS/ML 1ML VIAL SC SCH ×2 (09:44→22:47)
[2021-06-06] MEDS: SODIUM FERR GLUC 62.5MG/5ML 125 MG in SODIUM CHL 0.9% 100 ML IV SCH (12:46)
[2021-06-06 13:00] VITALS: BP 155/60
[2021-06-06 17:00] VITALS: BP 153/61
[2021-06-06] MEDS: Nepro With Carbsteady ButterPecan 8oz Carton PO SCH (18:00)
[2021-06-06] MEDS: ACETAMINOPHEN 325 MG TAB PO PRN (18:55)
[2021-06-06] MEDS ORDERED: EPOETIN ALFA-EPBX 10,000 UNIT/1ML VIAL SC ONE (21:00)
[2021-06-06 22:00] VITALS: BP 148/59
[2021-06-06] MEDS: ATORVASTATIN 20 MG TAB PO SCH (22:46)
[2021-06-07] MEDS: IPRATROPIUM BROM 0.5 MG/2.5ML INH SOL NEB SCH ×4 (00:11→18:59)
[2021-06-07] MEDS: ALBUTEROL SULF 2.5 MG/0.5ML(0.5%) NEB SOLN NEB SCH ×4 (00:11→18:59)
[2021-06-07 05:00] VITALS: BP 156/67
[2021-06-07] MEDS: FUROSEMIDE 100 MG/10ML VIAL IV SCH ×3 (05:13→21:40)
[2021-06-07] MEDS: hydrALAZINE HCL 25 MG TAB PO SCH ×3 (05:14→18:14)
[2021-06-07] MEDS: ACCU-CHEK COMFORT CURVE STRIP VI SCH ×4 (06:40→21:45)
[2021-06-07] MEDS: InsuLIN REG 1unit/0.01ml Soln (100units/ml) SC SCH ×4 (06:41→21:44)
[2021-06-07] MEDS: CALCIUM ACETATE 667 MG CAP PO SCH ×3 (08:32→18:14)
[2021-06-07] MEDS: Nepro With Carbsteady ButterPecan 8oz Carton PO SCH ×2 (08:33→19:36)
[2021-06-07 09:00] VITALS: BP 146/63
[2021-06-07] MEDS: ASPirin 81 mg TAB PO SCH (09:52)
[2021-06-07] MEDS: CLOPIDOGREL BISULFATE 75 MG TAB PO SCH (09:53)
[2021-06-07] MEDS: METOPROLOL TARTRATE 25 MG TAB PO SCH ×2 (09:53→21:41)
[2021-06-07] MEDS: GABAPENTIN 300 MG CAP PO SCH (09:54)
[2021-06-07] MEDS: PANTOPRAZOLE 40 MG TAB PO SCH (09:54)
[2021-06-07] MEDS: HEPARIN SODIUM (PORCINE) 5000 UNITS/ML 1ML VIAL SC SCH (09:55)
[2021-06-07 12:43] VITALS: BP 135/52
[2021-06-07] MEDS: SODIUM FERR GLUC 62.5MG/5ML 125 MG in SODIUM CHL 0.9% 100 ML IV SCH (12:48)
[2021-06-07] MEDS: HYDROcodone-ACET 5/325MG TAB PO PRN (13:57)
[2021-06-07 16:44] LABS: Red Blood Cells 2.57 10^6/uL (4.0-5.20)
[2021-06-07 16:47] LABS: Hematocrit 23.7 % (36.0-46.0); Mean Corpuscular Hgb Conc. 33.6 g/dL (32.0-36.0); Mean Corpuscular Volume 92.2 fL (80.0-100.0); Red Cell Distribution Width 15.9 % (11.8-14.3); White Blood Cell 6.3 10^3/uL (4.4-10.8)
[2021-06-07 16:58] LABS: Band Neutrophils % (manual) 0; Blast Cells 0; Metamyelocytes % 0; Myelocytes % 0; Promyelocytes % 0
[2021-06-07 17:00] VITALS: BP 132/54
[2021-06-07 17:05] LABS: Calcium 8.5 mg/dL (8.5-10.1); Potassium 3.6 mmol/L (3.5-5.1)
[2021-06-07 17:08] LABS: BUN/Creatinine Ratio 13.4
[2021-06-07] MEDS ORDERED: EPOETIN ALFA-EPBX 10,000 UNIT/1ML VIAL SC ONE (17:15)
[2021-06-07] MEDS ORDERED: ALBUMIN 25% 100 ML IV PRN (17:30)
[2021-06-07 17:45] LABS: Basophils % (manual) 1 (0.0-2.0); Eosinophils % (manual) 3 (0-7); Lymphocytes % (manual) 20 (10.0-50.0); Monocytes % (manual) 15 (0-12); Reactive Lymphocytes 1
[2021-06-07 20:00] VITALS: BP 130/54
[2021-06-07] MEDS: ATORVASTATIN 20 MG TAB PO SCH (21:41)
[2021-06-07 22:00] VITALS: BP 142/58
[2021-06-08] MEDS: ALBUTEROL SULF 2.5 MG/0.5ML(0.5%) NEB SOLN NEB SCH ×4 (00:24→19:20)
[2021-06-08] MEDS: IPRATROPIUM BROM 0.5 MG/2.5ML INH SOL NEB SCH ×4 (00:24→19:20)
[2021-06-08] MEDS: ACETAMINOPHEN 325 MG TAB PO PRN (03:00)
[2021-06-08] MEDS: FUROSEMIDE 100 MG/10ML VIAL IV SCH (05:40)
[2021-06-08] MEDS: InsuLIN REG 1unit/0.01ml Soln (100units/ml) SC SCH ×4 (05:41→22:00)
[2021-06-08] MEDS: hydrALAZINE HCL 25 MG TAB PO SCH ×4 (05:41→18:08)
[2021-06-08] MEDS: HEPARIN SODIUM (PORCINE) 5000 UNITS/ML 1ML VIAL SC SCH ×3 (05:44→22:13)
[2021-06-08] MEDS: ACCU-CHEK COMFORT CURVE STRIP VI SCH ×4 (05:57→21:59)
[2021-06-08] MEDS: HYDROcodone-ACET 5/325MG TAB PO PRN ×2 (05:58→23:23)
[2021-06-08 06:53] LABS: Basophils # (auto) 0 10 ^3/uL (0-0.2); Basophils % (auto) 0.7 % (0.0-2.0); Eosinophils # (auto) 0.2 10 ^3/uL (0-0.8); Eosinophils % (auto) 2.5 % (0.0-7.0); Hematocrit 25.5 % (36.0-46.0); Hemoglobin 8.5 g/dL (12.2-16.2); Lymphocytes # (auto) 1.3 10 ^3/uL (0.4-5.4); Lymphocytes % (auto) 17.9 % (10.0-50.0); Mean Corpuscular Hgb Conc. 33.5 g/dL (32.0-36.0); Mean Corpuscular Volume 92.6 fL (80.0-100.0); Monocytes # (auto) 1.1 10 ^3/uL (0-1.3); Monocytes % (auto) 15.2 % (0.0-12.0); Neutrophils # (auto) 4.5 10 ^3/uL (1.6-8.6); Neutrophils % (auto) 63.7 % (37.0-80.0); Nucleated Red Blood Cells % 0.2 %; Red Blood Cells 2.75 10^6/uL (4.0-5.20)
[2021-06-08 07:13] LABS: Calcium 9.2 mg/dL (8.5-10.1); Potassium 3.4 mmol/L (3.5-5.1)
[2021-06-08 07:15] LABS: BUN/Creatinine Ratio 14.1
[2021-06-08] MEDS: CALCIUM ACETATE 667 MG CAP PO SCH ×3 (07:51→18:07)
[2021-06-08] MEDS: Nepro With Carbsteady ButterPecan 8oz Carton PO SCH ×2 (07:52→18:09)
[2021-06-08 09:15] VITALS: BP 146/80
[2021-06-08] MEDS: GABAPENTIN 300 MG CAP PO SCH (09:58)
[2021-06-08] MEDS: ASPirin 81 mg TAB PO SCH (09:58)
[2021-06-08] MEDS: PANTOPRAZOLE 40 MG TAB PO SCH (09:58)
[2021-06-08] MEDS: CLOPIDOGREL BISULFATE 75 MG TAB PO SCH (09:58)
[2021-06-08] MEDS: METOPROLOL TARTRATE 25 MG TAB PO SCH ×2 (10:00→22:00)
[2021-06-08] MEDS ORDERED: HYDR25TA87 PO (11:07)
[2021-06-08] MEDS: SODIUM FERR GLUC 62.5MG/5ML 125 MG in SODIUM CHL 0.9% 100 ML IV SCH (12:57)
[2021-06-08 14:13] VITALS: BP 161/58
[2021-06-08 15:55] LABS: BUN/Creatinine Ratio 13.3; Calcium 8.7 mg/dL (8.5-10.1); Potassium 3.5 mmol/L (3.5-5.1)
[2021-06-08 17:00] VITALS: BP 149/62
[2021-06-08] MEDS: ATORVASTATIN 20 MG TAB PO SCH (21:59)
[2021-06-08 22:00] VITALS: BP 103/55
[2021-06-09] MEDS: IPRATROPIUM BROM 0.5 MG/2.5ML INH SOL NEB SCH ×4 (00:38→18:00)
[2021-06-09] MEDS: ALBUTEROL SULF 2.5 MG/0.5ML(0.5%) NEB SOLN NEB SCH ×4 (00:38→18:00)
[2021-06-09 03:03] VITALS: BP 102/55
[2021-06-09 05:00] VITALS: BP 170/60
[2021-06-09] MEDS: hydrALAZINE HCL 25 MG TAB PO SCH ×4 (06:05→17:40)
[2021-06-09] MEDS: ACCU-CHEK COMFORT CURVE STRIP VI SCH ×4 (06:05→22:01)
[2021-06-09] MEDS: InsuLIN REG 1unit/0.01ml Soln (100units/ml) SC SCH ×4 (06:09→22:00)
[2021-06-09 06:33] LABS: Calcium 9.2 mg/dL (8.5-10.1); Potassium 3.6 mmol/L (3.5-5.1)
[2021-06-09] MEDS: Nepro With Carbsteady ButterPecan 8oz Carton PO SCH ×2 (08:00→17:42)
[2021-06-09] MEDS: CALCIUM ACETATE 667 MG CAP PO SCH ×3 (08:00→17:40)
[2021-06-09 09:00] VITALS: BP 126/60
[2021-06-09 09:42] LABS: INR 1.05 (0.9-1.15); Partial Thromboplastin Time 34.2 sec (23.6-33.0)
[2021-06-09] MEDS: METOPROLOL TARTRATE 25 MG TAB PO SCH ×3 (10:00→23:20)
[2021-06-09] MEDS: CLOPIDOGREL BISULFATE 75 MG TAB PO SCH (10:00)
[2021-06-09] MEDS: PANTOPRAZOLE 40 MG TAB PO SCH (11:16)
[2021-06-09] MEDS: GABAPENTIN 300 MG CAP PO SCH (11:16)
[2021-06-09] MEDS: FUROSEMIDE 100 MG/10ML VIAL IV SCH (11:17)
[2021-06-09] MEDS: ASPirin 81 mg TAB PO SCH (12:07)
[2021-06-09] MEDS: HEPARIN SODIUM (PORCINE) 5000 UNITS/ML 1ML VIAL SC SCH ×2 (12:10→22:21)
[2021-06-09 13:00] VITALS: BP 163/68
[2021-06-09] MEDS: SODIUM FERR GLUC 62.5MG/5ML 125 MG in SODIUM CHL 0.9% 100 ML IV SCH (13:25)
[2021-06-09] MEDS: HYDROcodone-ACET 5/325MG TAB PO PRN (17:44)
[2021-06-09 21:50] VITALS: BP 125/55
[2021-06-09] MEDS: ATORVASTATIN 20 MG TAB PO SCH (22:02)
[2021-06-10] MEDS: IPRATROPIUM BROM 0.5 MG/2.5ML INH SOL NEB SCH ×5 (00:14→23:17)
[2021-06-10] MEDS: ALBUTEROL SULF 2.5 MG/0.5ML(0.5%) NEB SOLN NEB SCH ×5 (00:14→23:17)
[2021-06-10 05:35] VITALS: BP 152/51
[2021-06-10] MEDS: ACCU-CHEK COMFORT CURVE STRIP VI SCH ×4 (06:28→22:00)
[2021-06-10] MEDS: hydrALAZINE HCL 25 MG TAB PO SCH ×4 (06:28→18:16)
[2021-06-10] MEDS: InsuLIN REG 1unit/0.01ml Soln (100units/ml) SC SCH ×4 (06:31→22:00)
[2021-06-10] MEDS: Nepro With Carbsteady ButterPecan 8oz Carton PO SCH ×2 (08:15→18:15)
[2021-06-10] MEDS: CALCIUM ACETATE 667 MG CAP PO SCH ×3 (08:15→18:14)
[2021-06-10] MEDS: FUROSEMIDE 100 MG/10ML VIAL IV SCH (08:52)
[2021-06-10] MEDS: ASPirin 81 mg TAB PO SCH (08:52)
[2021-06-10] MEDS: PANTOPRAZOLE 40 MG TAB PO SCH (08:52)
[2021-06-10] MEDS: GABAPENTIN 300 MG CAP PO SCH (08:52)
[2021-06-10] MEDS: amLODIPine BESYLATE 5 MG TAB PO SCH (08:59)
[2021-06-10 09:00] VITALS: BP 128/67
[2021-06-10] MEDS: HEPARIN SODIUM (PORCINE) 5000 UNITS/ML 1ML VIAL SC SCH ×2 (09:06→22:00)
[2021-06-10] MEDS: METOPROLOL TARTRATE 25 MG TAB PO SCH ×2 (10:00→22:00)
[2021-06-10 10:14] LABS: BUN/Creatinine Ratio 13.6; Calcium 9.2 mg/dL (8.5-10.1); Potassium 3.3 mmol/L (3.5-5.1)
[2021-06-10] MEDS ORDERED: POTASSIUM CHL 10 Meq TABLET PO ONE (11:00)
[2021-06-10] MEDS ORDERED: POTASSIUM CHL 20 Meq TABLET PO ONE (11:00)
[2021-06-10] MEDS: HYDROcodone-ACET 5/325MG TAB PO PRN (12:03)
[2021-06-10] MEDS: SODIUM FERR GLUC 62.5MG/5ML 125 MG in SODIUM CHL 0.9% 100 ML IV SCH (12:05)
[2021-06-10 13:00] VITALS: BP 141/59
[2021-06-10 17:00] VITALS: BP 132/52
[2021-06-10 22:00] VITALS: BP 131/60
[2021-06-10] MEDS: ATORVASTATIN 20 MG TAB PO SCH (22:00)
[2021-06-11 05:00] VITALS: BP 149/61
[2021-06-11] MEDS: hydrALAZINE HCL 25 MG TAB PO SCH ×4 (06:00→18:00)
[2021-06-11 06:11] LABS: Basophils # (auto) 0.1 10 ^3/uL (0-0.2); Basophils % (auto) 0.6 % (0.0-2.0); Eosinophils # (auto) 0.2 10 ^3/uL (0-0.8); Eosinophils % (auto) 2.6 % (0.0-7.0); Hematocrit 25.9 % (36.0-46.0); Hemoglobin 8.8 g/dL (12.2-16.2); Lymphocytes # (auto) 1.2 10 ^3/uL (0.4-5.4); Mean Corpuscular Hemoglobin 31.7 pg (28.0-32.0); Mean Corpuscular Hgb Conc. 33.9 g/dL (32.0-36.0); Mean Corpuscular Volume 93.6 fL (80.0-100.0); Monocytes % (auto) 11.4 % (0.0-12.0); Neutrophils % (auto) 71.4 % (37.0-80.0); Red Blood Cells 2.77 10^6/uL (4.0-5.20); Red Cell Distribution Width 16.4 % (11.8-14.3); White Blood Cell 8.4 10^3/uL (4.4-10.8)
[2021-06-11] MEDS: IPRATROPIUM BROM 0.5 MG/2.5ML INH SOL NEB SCH ×4 (06:13→18:20)
[2021-06-11] MEDS: ALBUTEROL SULF 2.5 MG/0.5ML(0.5%) NEB SOLN NEB SCH ×3 (06:13→14:28)
[2021-06-11 06:17] LABS: INR 0.98 (0.9-1.15)
[2021-06-11] MEDS: ACCU-CHEK COMFORT CURVE STRIP VI SCH ×4 (06:33→22:07)
[2021-06-11 06:39] LABS: BUN/Creatinine Ratio 14.6; Calcium 9.2 mg/dL (8.5-10.1); Potassium 3.9 mmol/L (3.5-5.1)
[2021-06-11] MEDS: InsuLIN REG 1unit/0.01ml Soln (100units/ml) SC SCH ×4 (06:40→22:00)
[2021-06-11] MEDS ORDERED: SODIUM CHL 0.9% 1000 ML BAG XX ONE (07:00)
[2021-06-11] MEDS: HEPARIN SODIUM (PORCINE) 5000 UNITS/ML 1ML VIAL SC SCH ×2 (07:38→22:07)
[2021-06-11] MEDS: Nepro With Carbsteady ButterPecan 8oz Carton PO SCH ×2 (08:00→18:28)
[2021-06-11] MEDS: CALCIUM ACETATE 667 MG CAP PO SCH ×3 (08:43→18:00)
[2021-06-11] MEDS: PANTOPRAZOLE 40 MG TAB PO SCH (08:44)
[2021-06-11] MEDS: amLODIPine BESYLATE 5 MG TAB PO SCH (08:44)
[2021-06-11] MEDS: GABAPENTIN 300 MG CAP PO SCH (08:44)
[2021-06-11] MEDS: METOPROLOL TARTRATE 25 MG TAB PO SCH ×2 (08:44→22:06)
[2021-06-11 09:00] VITALS: BP 146/52
[2021-06-11] MEDS: FUROSEMIDE 100 MG/10ML VIAL IV SCH (10:00)
[2021-06-11] MEDS: ASPirin 81 mg TAB PO SCH (10:00)
[2021-06-11] MEDS: SODIUM FERR GLUC 62.5MG/5ML 125 MG in SODIUM CHL 0.9% 100 ML IV SCH (12:00)
[2021-06-11 13:00] VITALS: BP 126/50
[2021-06-11] MEDS ORDERED: HEPARIN SODIUM (PORCINE) 5000 UNITS/ML 1ML VIAL ONE (13:09)
[2021-06-11] MEDS ORDERED: fentaNYL CITRATE 100 MCG/2 ML VL ONE (13:10)
[2021-06-11] MEDS ORDERED: MIDAZOLAM HCL 2MG/2ML 2ml VIAL (1mg/ml) ONE (13:10)
[2021-06-11] MEDS ORDERED: LIDOCAINE 2%HCL (LOCAL ANESTH.) INJ 10ml MDV ONE ×2 (13:11→13:14)
[2021-06-11] MEDS ORDERED: LIDOCAINE W/ EPINEPHRINE 2% INJ 20ML VIAL ONE (13:36)
[2021-06-11] MEDS ORDERED: ceFAZolin 1GM/50ML 50 ML IV ONE (13:45)
[2021-06-11] MEDS ORDERED: ALBUMIN 25% 100 ML IV PRN (14:45)
[2021-06-11 17:00] VITALS: BP 155/75
[2021-06-11] MEDS: HYDROcodone-ACET 5/325MG TAB PO PRN (20:59)
[2021-06-11] MEDS ORDERED: EPOETIN ALFA-EPBX 10,000 UNIT/1ML VIAL SC ONE (21:00)
[2021-06-11] MEDS ORDERED: HALOPERIDOL LACTATE 5 MG/ML INJ VIAL IM PRN (21:15)
[2021-06-11 22:00] VITALS: BP 127/83
[2021-06-11] MEDS: ATORVASTATIN 20 MG TAB PO SCH (22:06)
[2021-06-12] MEDS: hydrALAZINE HCL 25 MG TAB PO SCH ×3 (00:08→12:00)
[2021-06-12] MEDS: IPRATROPIUM BROM 0.5 MG/2.5ML INH SOL NEB SCH ×3 (00:49→11:37)
[2021-06-12] MEDS: ALBUTEROL SULF 2.5 MG/0.5ML(0.5%) NEB SOLN NEB SCH ×3 (00:49→11:36)
[2021-06-12 01:19] VITALS: BP 126/53
[2021-06-12 05:00] VITALS: BP 136/64
[2021-06-12] MEDS: InsuLIN REG 1unit/0.01ml Soln (100units/ml) SC SCH ×2 (06:10→11:30)
[2021-06-12] MEDS: ACCU-CHEK COMFORT CURVE STRIP VI SCH ×2 (06:10→11:30)
[2021-06-12 07:00] LABS: Potassium 4.4 mmol/L (3.5-5.1)
[2021-06-12 07:11] LABS: BUN/Creatinine Ratio 10.5; Calcium 9.4 mg/dL (8.5-10.1)
[2021-06-12] MEDS: Nepro With Carbsteady ButterPecan 8oz Carton PO SCH (08:00)
[2021-06-12] MEDS: CALCIUM ACETATE 667 MG CAP PO SCH ×2 (10:22→12:00)
[2021-06-12] MEDS: ASPirin 81 mg TAB PO SCH (10:23)
[2021-06-12] MEDS: METOPROLOL TARTRATE 25 MG TAB PO SCH (10:23)
[2021-06-12] MEDS: FUROSEMIDE 100 MG/10ML VIAL IV SCH (10:23)
[2021-06-12] MEDS: GABAPENTIN 300 MG CAP PO SCH (10:24)
[2021-06-12] MEDS: PANTOPRAZOLE 40 MG TAB PO SCH (10:25)
[2021-06-12] MEDS: amLODIPine BESYLATE 5 MG TAB PO SCH (10:25)
[2021-06-12] MEDS: HEPARIN SODIUM (PORCINE) 5000 UNITS/ML 1ML VIAL SC SCH (10:41)
[2021-06-12] MEDS: SODIUM FERR GLUC 62.5MG/5ML 125 MG in SODIUM CHL 0.9% 100 ML IV SCH (12:00)
[2021-06-13] MEDS ORDERED: SODIUM CHL 0.9% 1000 ML BAG XX ONE (07:00)
[2021-06-13] MEDS ORDERED: EPOETIN ALFA-EPBX 10,000 UNIT/1ML VIAL SC ONE (21:00)
== END 2021-06-12 16:06 | disposition home or self-care (01) | DRG 280 ==
LOC: ER 21:19 → TELE 05-30 03:56 → DOU IN ICU 05-30 08:15 → TELE-WESTW 06-01 12:21
PROVIDERS: ADMIT Internal Medicine; ATTEND Internal Medicine
PROC: 5A1D70Z Performance of Urinary Filtration, Intermittent, Less than 6 Hours Per Day (ICD-10-PCS; principal; 2021-06-04)
PROC: 02HV33Z Insertion of Infusion Device into Superior Vena Cava, Percutaneous Approach (ICD-10-PCS; 2021-06-04)
PROC: B548ZZA Ultrasonography of Superior Vena Cava, Guidance (ICD-10-PCS; 2021-06-04)
PROC: 5A1D70Z Performance of Urinary Filtration, Intermittent, Less than 6 Hours Per Day (ICD-10-PCS; 2021-06-06)
PROC: 5A1D70Z Performance of Urinary Filtration, Intermittent, Less than 6 Hours Per Day (ICD-10-PCS; 2021-06-11)
PROC: 0JH63XZ Insertion of Tunneled Vascular Access Device into Chest Subcutaneous Tissue and Fascia, Percutaneous Approach (ICD-10-PCS; 2021-06-11)
PROC: 02H633Z Insertion of Infusion Device into Right Atrium, Percutaneous Approach (ICD-10-PCS; 2021-06-11)
PROC: B5181ZA Fluoroscopy of Superior Vena Cava using Low Osmolar Contrast, Guidance (ICD-10-PCS; 2021-06-11)
PROC: B548ZZA Ultrasonography of Superior Vena Cava, Guidance (ICD-10-PCS; 2021-06-11)
DX: I21.4 Non-ST elevation (NSTEMI) myocardial infarction (principal); J96.21 Acute and chronic respiratory failure with hypoxia; N17.0 Acute kidney failure with tubular necrosis; N18.6 End stage renal disease; I50.31 Acute diastolic (congestive) heart failure; N39.0 Urinary tract infection, site not specified; I16.1 Hypertensive emergency; J44.1 Chronic obstructive pulmonary disease with (acute) exacerbation; J98.11 Atelectasis; I13.2 Hypertensive heart and chronic kidney disease with heart failure and with stage 5 chronic kidney disease, or end stage renal disease; I25.10 Atherosclerotic heart disease of native coronary artery without angina pectoris; D63.1 Anemia in chronic kidney disease; E87.5 Hyperkalemia; D50.9 Iron deficiency anemia, unspecified; E11.51 Type 2 diabetes mellitus with diabetic peripheral angiopathy without gangrene; E78.5 Hyperlipidemia, unspecified; E11.22 Type 2 diabetes mellitus with diabetic chronic kidney disease; E83.39 Other disorders of phosphorus metabolism; E11.40 Type 2 diabetes mellitus with diabetic neuropathy, unspecified; F17.200 Nicotine dependence, unspecified, uncomplicated; Z71.6 Tobacco abuse counseling; Z79.4 Long term (current) use of insulin; Z79.899 Other long term (current) drug therapy; Z99.2 Dependence on renal dialysis; Z88.0 Allergy status to penicillin; Z82.49 Family history of ischemic heart disease and other diseases of the circulatory system; Z83.3 Family history of diabetes mellitus; Z95.1 Presence of aortocoronary bypass graft; Z99.81 Dependence on supplemental oxygen; Z68.20 Body mass index [BMI] 20.0-20.9, adult
CPT/HCPCS: 36415; 36558; 71045; 76775; 76942; 77001; 80048; 80053; 80061; 80074; 80307; 81001; 82270; 82306; 82570; 82728; 82962; 83036; 83520; 83540; 83550; 83735; 83880; 83970; 84100; 84156; 84300; 84443; 84484; 84550; 85007; 85014; 85018; 85025; 85027; 85610; 85730; 86038; 86160; 86256; 86703; 87040; 87081; 87086; 90935; 93005; 93306; 93925; 93970; 94640; 96365; 96367; 96375; 96376; 97110; 97116; 97163; 97530; 99152; 99153; G0378; J0690; J0696; J1642; J1815; J1956; J2001; J2250; J2405; J3490; J7060; P9047

== ENCOUNTER 2021-06-21 23:21 | Observation (INO) | payer BC, OTHER ==
[~2021-06-21] VITALS: Ht 149.9 cm; Wt 35.8 kg
[~2021-06-21 23:21] MED LIST: ASPI325T31 PO; ATOR40TA52 PO; CARV12.544 PO; FAMO-12 PO; HYDR25TA87 PO; SERT50TA19 PO
[2021-06-22] MEDS ORDERED: PANTOPRAZOLE 40 MG/10 ML VIAL INJ IV ONE (00:15)
[2021-06-22] MEDS ORDERED: PANTOPRAZOLE 40mg/50ML NS AE 50 ML IV ONE (00:15)
[2021-06-22 01:12] LABS: Basophils # (auto) 0.1 10 ^3/uL (0-0.2); Basophils % (auto) 2.2 % (0.0-2.0); Eosinophils # (auto) 0.2 10 ^3/uL (0-0.8); Eosinophils % (auto) 5.4 % (0.0-7.0); Hematocrit 33.8 % (36.0-46.0); Hemoglobin 10.8 g/dL (12.2-16.2); Lymphocytes # (auto) 0.9 10 ^3/uL (0.4-5.4); Lymphocytes % (auto) 26.1 % (10.0-50.0); Mean Corpuscular Hemoglobin 30.8 pg (28.0-32.0); Mean Corpuscular Hgb Conc. 31.9 g/dL (32.0-36.0); Mean Corpuscular Volume 96.6 fL (80.0-100.0); Monocytes # (auto) 0.3 10 ^3/uL (0-1.3); Monocytes % (auto) 9.8 % (0.0-12.0); Neutrophils % (auto) 56.5 % (37.0-80.0); Nucleated Red Blood Cells % 0.2 %; Red Cell Distribution Width 16.8 % (11.8-14.3); White Blood Cell 3.5 10^3/uL (4.4-10.8)
[2021-06-22 01:23] LABS: Albumin 4.1 g/dL (3.4-5.0); BUN/Creatinine Ratio 16.5; Calcium 8.8 mg/dL (8.5-10.1); Potassium 4.9 mmol/L (3.5-5.1)
[2021-06-22 01:25] LABS: Bilirubin, Total 0.4 mg/dL (0.2-1.0); Total Protein 8.1 g/dL (6.4-8.2)
[2021-06-22 02:28] LABS: Urine Bacteria FEW /hpf (None Seen); Urine Blood Negative /uL (Negative); Urine Specific Gravity 1.017 (1.001-1.035); Urine WBC 5 /hpf (0 - 5)
[2021-06-22 03:27] LABS: INR 1.05 (0.9-1.15); Partial Thromboplastin Time 29.8 sec (23.6-33.0)
[2021-06-22] MEDS ORDERED: NITROGLYCERIN 0.4 MG SL TAB SL PRN (06:30)
[2021-06-22] MEDS ORDERED: MORPHINE SULFATE INJ 2 MG/ml SYRG IV PRN (06:30)
[2021-06-22] MEDS ORDERED: DEXTROSE (50%) 50ML SYRG IV PRN (06:45)
[2021-06-22] MEDS ORDERED: levoFLOXacin 500MG 100 ML IV ONE (06:45)
[2021-06-22] MEDS ORDERED: InsuLIN REG 1unit/0.01ml Soln (100units/ml) SC SCH (07:00)
[2021-06-22] MEDS ORDERED: ACCU-CHEK COMFORT CURVE STRIP VI SCH (07:00)
[2021-06-22] MEDS ORDERED: FAMOTIDINE 20 MG TAB PO SCH (07:00)
[2021-06-22] MEDS ORDERED: ASPirin-EC 325mg tab PO SCH (10:00)
[2021-06-22] MEDS ORDERED: SERTRALINE HCL 50 MG TAB PO SCH (10:00)
[2021-06-22] MEDS ORDERED: PANTOPRAZOLE 40 MG/10 ML VIAL INJ IV SCH (10:00)
[2021-06-22] MEDS ORDERED: CARVEDILOL 12.5 MG TAB PO SCH (10:00)
[2021-06-22 10:21] VITALS: BP 183/77
[2021-06-22] MEDS ORDERED: hydrALAZINE HCL 25 MG TAB PO SCH (12:00)
[2021-06-24] MEDS ORDERED: FAMOTIDINE 20 MG TAB PO SCH (07:00)
== END 2021-06-22 10:55 | disposition left against medical advice (07) ==
LOC: EDUNIT# 23:21 → EDBD 23:21 → ER 23:23 → UNDOADMOB 06-22 06:22 → TELE 06-22 06:22 → UNDODISOB 06-22 10:55
PROVIDERS: ADMIT Internal Medicine; ATTEND Internal Medicine
DX: K92.2 Gastrointestinal hemorrhage, unspecified (principal); Z20.822 Contact with and (suspected) exposure to COVID-19; I13.2 Hypertensive heart and chronic kidney disease with heart failure and with stage 5 chronic kidney disease, or end stage renal disease; I50.30 Unspecified diastolic (congestive) heart failure; N18.6 End stage renal disease; E11.22 Type 2 diabetes mellitus with diabetic chronic kidney disease; I21.4 Non-ST elevation (NSTEMI) myocardial infarction; J44.9 Chronic obstructive pulmonary disease, unspecified; R77.8 Other specified abnormalities of plasma proteins; N39.0 Urinary tract infection, site not specified; E11.52 Type 2 diabetes mellitus with diabetic peripheral angiopathy with gangrene; D84.9 Immunodeficiency, unspecified; D64.9 Anemia, unspecified; I73.9 Peripheral vascular disease, unspecified; I25.2 Old myocardial infarction; E87.70 Fluid overload, unspecified; I25.10 Atherosclerotic heart disease of native coronary artery without angina pectoris; Z79.899 Other long term (current) drug therapy; Z87.891 Personal history of nicotine dependence; Z95.1 Presence of aortocoronary bypass graft; Z99.2 Dependence on renal dialysis; Z98.890 Other specified postprocedural states; Z79.4 Long term (current) use of insulin
CPT/HCPCS: 36415; 71045; 80053; 81001; 82962; 83605; 83880; 84484; 85025; 85384; 85610; 85730; 86850; 86900; 86901; 87426; 93005; 96365; 96367; 96376; 99285; C9113; G0378; J1956; 96366